=== PATIENT | male | born 1995 | race Caucasian/White ===

== ENCOUNTER → 2020-07-27 09:16 | Outpatient (CLI) | payer OTHER, SELFPAY ==
--- NOTE | ~2020-07-27 | CT_ITS ---
EXAMINATION: CT IAC/mastoids BI wo con DATE: 07/27/2020 09:36 INDICATION: Mixed conductive and sensorineural hearing loss. TECHNIQUE: Computed tomography (CT) of the temporal bones was performed without intravenous contrast. Automated exposure control and iterative reconstruction technique were employed. The dose-length pro duct was 260.23 mGy-cm. COMPARISON: None FINDINGS: RIGHT TEMPORAL BONE: Right internal auditory canal, cochlea, vestibule, semicircular canals, vestibular aqueduct, carotid canal, jugular bulb, and facial nerve course are normal. There is a small volume of material abutting the ossicles including in Prussak space. There are no erosions of bone. Scutum is normal. The tympan ic membrane is thickened superiorly. There are small areas of dehiscence of the tegmen tympani. There is a small volume of cerumen in the external auditory canal. There is a trace right mastoid effusion . LEFT TEMPORAL BONE: The internal auditory canal, cochlea, vestibule, semicircular canals, vestibular aqueduct, carotid ca nal, jugular bulb, facial nerve course are normal. Incus is absent. The head of malleus is small. The re is a small volume of material in the tympanic cavity including in Prussak space. There are erosion s of scutum. There are areas of dehiscence of tegmen tympani. There are changes of mastoidectomy. The re is a left mastoid effusion. There is narrowing of the soft tissue external auditory canal. IMPRESSION: 1. Small volume of material in the right tympanic cavity without bone erosion. 2. Small volume of material in the left tympanic cavity. Absent incus and erosions of scutum and head of malleus. 3. Changes of left mastoidectomy. Left mastoid effusion. 4. Narrowing of the soft tissue left external auditory canal. Correlate clinically for otitis externa . Reviewed, dictated and finalized at location A. IALTY PERSON IMPRESSION: 1. Small volume of material in the right tympanic cavity without bone erosion. 2. Small volume of material in the left tympanic cavity. Absent incus and erosi ons of scutum and head of malleus. 3. Changes of left mastoidectomy. Left mastoid effusion. 4. Narrowing of the soft tissue left external auditory canal. Correlate clinica lly for otitis externa.
== END ==
PROVIDERS: Visit Provider Otolaryngology
DX: H91.90 Unspecified hearing loss, unspecified ear (principal); H74.8X3 Other specified disorders of middle ear and mastoid, bilateral
CPT/HCPCS: 70480

== ENCOUNTER 2021-06-20 10:53 | Emergency (ER) | payer OTHER, SELFPAY ==
--- NOTE | ~2021-06-20 | XR_ITS ---
XR thoracic spine 3V 06/20/2021 13:15 Indication: Back pain Procedure: 3 views of the thoracic spine Comparison: No prior studies for comparison. Findings: No fracture or traumatic malalignment. Vertebral body heights and alignment are normal. No paraspinal soft tissue abnormality. Pedicles intact. No paraspinal soft tissue abnormality. Impression: 1: No acute abnormality of the thoracic spine. Reviewed, dictated and finalized at location A. OO DESIGNER Impression: 1: No acute abnormality of the thoracic spine.
[2021-06-20 11:18] VITALS: BP 169/95; PULSE 62; RESP 18; TEMP 36.6; O2SAT 100
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
== END 2021-06-20 14:20 | disposition home or self-care (01) ==
PROVIDERS: Emergency Provider Emergency Medicine
DX: S29.012A Strain of muscle and tendon of back wall of thorax, initial encounter (principal); V49.40XA Driver injured in collision with unspecified motor vehicles in traffic accident, initial encounter
CPT/HCPCS: 72072; 99283

== ENCOUNTER 2021-07-14 12:50 | Emergency (ER) | payer OTHER, SELFPAY ==
--- NOTE | ~2021-07-14 | XR_ITS ---
EXAMINATION: XR chest 1V portable DATE: 07/14/2021 14:36 INDICATION: Fever. TECHNIQUE: A single frontal view of the chest was obtained. COMPARISON: None. FINDINGS: The chest demonstrates clear lungs without pneumonia, pleural effusion, or pneumothorax. Th e heart size is normal. IMPRESSION: 1. No acute cardiopulmonary disease. Reviewed, dictated and finalized at location B. MACHINE OPERATOR HELPER
[2021-07-14 13:15] VITALS: BP 158/87; PULSE 123; RESP 17; TEMP 39.1; O2SAT 98
[2021-07-14] MEDS: ACETAMINOPHEN 325 MG TABLET 650 MG PO (14:27)
--- NOTE | 2021-07-14 14:27 | ED.URI ---
HPI - URI/Sore Throat General Chief Complaint: Fever Stated Complaint: fever Time Seen by Provider: 07/14/21 14:16 Source: patient Mode of arrival: ambulatory Limitations: no limitations History of Present Illness HPI Narrative: Patient is a 26-year-old male complaining of fever accompanied by cough, productive, clear sputum that started 2 days ago. Patient states that he was seen at an urgent care, [facility] [place], had flu and COVID test done and both were negative. Patient denies any chest pain, shortness of breath, abdominal pain, nausea, vomiting, diarrhea or or rash. Patient states that he is fully vaccinated from COVID. Related Data Home Medications Medication Instructions Recorded Confirmed No Home Medications 06/20/21 07/14/21 Allergies Allergy/AdvReac Type Severity Reaction Status Date / Time No Known Allergies Allergy Verified 07/14/21 12:50 Review of Systems Review of Systems: All systems reviewed & are unremarkable except as noted in HPI and below Constitutional: Constitutional: Denies body ache(s), Denies excessive sweating, Denies fatigue, Denies headache(s), Denies lethargy, Denies malaise, Denies weakness and Denies weight loss Eyes: Eyes: Denies blurry vision, Denies change in vision and Denies loss of vision ENT: Denies dizziness, Denies ear discharge, Denies headache(s), Denies lip swelling, Denies epistaxis, Denies nasal congestion, Denies neck pain, Denies throat swelling and Denies tongue swelling Cardiovascular: Cardiovascular: Denies chest pain, Denies chest pain at rest, Denies chest pain with activity, Denies diaphoresis, Denies rapid heart rate, Denies edema, Denies irregular heart rhythm, Denies lightheadedness, Denies palpitations, Denies dyspnea and Denies dyspnea on exertion Respiratory: Respiratory: Denies chest congestion, Denies hemoptysis, Denies dyspnea and Denies dyspnea on exertion Gastrointestinal: Gastrointestinal: Denies abdominal pain, Denies melena, Denies hematochezia, Denies diarrhea, Denies nausea, Denies vomiting and Denies hematemesis Musculoskeletal: Musculoskeletal: Denies abnormal gait, Denies deformity, Denies joint swelling, Denies limited range of motion, Denies neck pain and Denies numbness Neurologic: Denies Abnormal speech present, Denies abnormal gait, Denies confusion, Denies dizziness, Denies headache(s), Denies focal weakness, Denies loss of vision, Denies numbness, Denies Other visual disturbances, Denies Sensory deficit (Neuro) and Denies weakness Psychiatric: Psychiatric: Denies confusion, Denies depression, Denies auditory hallucinations, Denies homicidal ideation and Denies suicidal ideation Endocrine: Endocrine: Denies cold intolerance, Denies excessive sweating, Denies fatigue, Denies heat intolerance and Denies palpitations Hematologic/Lymphatic: Hematologic/Lymphatic: Denies easy bleeding and Denies easy bruising Allergic/Immunologic: Allergic/Immunologic: Denies lip swelling, Denies throat swelling and Denies tongue swelling PMFSH Comments Past medical history: None Family history: Unknown Social history: Non-smoker no EtOH or drug use Exam Const: General: cooperative, healthy appearing, comfortable, no acute distress, well developed, alert and awake; No confusion Orientation/consciousness: oriented to person, oriented to place, oriented to time, patient oriented x3 and No confusion Limitations: no limitations HENMT: Head: normal to inspection, normocephalic and atraumatic Ears: hearing grossly normal bilaterally, TM normal on the right and TM normal on the left General nose exam: Normal external nose present, Normal nares present and No nasal discharge present Face and sinus: normal facial exam Mouth: Yes Normal oral and palatal mucosa present, Yes lip normal, Yes tongue normal and Yes oropharynx normal Throat: posterior oropharynx normal, tonsils normal and uvula midline Eyes: General: appearance normal, both eyes and all related structures Pupils: E
[2021-07-14] MEDS: IBUPROFEN 600 MG TABLET PO (14:38)
== END 2021-07-14 15:49 | disposition home or self-care (01) ==
PROVIDERS: Emergency Provider Emergency Medicine
DX: J06.9 Acute upper respiratory infection, unspecified (principal)
CPT/HCPCS: 71045; 87081; 87804; 87880; 99283; A9270

== ENCOUNTER 2021-07-19 18:40 | Emergency (ER) | payer OTHER, SELFPAY ==
[2021-07-19 18:42] VITALS: TEMP 37.6
[2021-07-19 18:54] VITALS: BP 155/85; PULSE 107; RESP 16; TEMP 38; O2SAT 98
--- NOTE | 2021-07-19 18:58 | ED.URI ---
HPI - URI/Sore Throat General Chief Complaint: Upper Respiratory Infection Stated Complaint: Tight feeling in chest Time Seen by Provider: 07/19/21 18:59 Source: patient, RN notes reviewed and old records reviewed Mode of arrival: ambulatory Limitations: no limitations History of Present Illness HPI Narrative: 26-year-old male presents to the [facility] with complaints of sternal discomfort when inhaling only. No chest pain. Denies shortness of breath. Patient states he has not been to work since last Sunday when he started with cold symptoms. On he tested at [facility] for a COVID test which he reports is negative. Was then seen the next day for shortness of breath, tested for COVID, influenza and was told it was negative. States he also had a chest x-ray. At that time he reports fevers. Was not prescribed anything. Patient states his current symptoms started yesterday. Denies fevers. No chest pain. Reports intermittent shortness of breath with inhalation only. MD elicited complaint: cough Related Data Allergies Allergy/AdvReac Type Severity Reaction Status Date / Time No Known Allergies Allergy Verified 07/19/21 18:57 Review of Systems Review of Systems: All systems reviewed & are unremarkable except as noted in HPI and below Constitutional: Constitutional: Reports no additional constitutional complaints, Denies chills and Denies fever(s) Eyes: Eyes: Reports no additional eye complaints ENT: Reports system reviewed and no additional complaints, except as documented Cardiovascular: Cardiovascular: Reports no additional cardiovascular complaints, Denies chest pain, Denies rapid heart rate, Denies radiating jaw, neck or arm pain and Denies slow heart rate Respiratory: Respiratory: Reports as per HPI, Reports chest congestion, Reports cough and Reports dyspnea Gastrointestinal: Gastrointestinal: Reports no additional gastrointestinal complaints, Denies abdominal pain, Denies diarrhea, Denies nausea and Denies vomiting Musculoskeletal: Musculoskeletal: Reports no additional musculoskeletal complaints Integumentary/Breasts: Skin/Breast: Reports system reviewed and no additional complaints, except as docu Neurologic: Reports system reviewed and no additional complaints, except as documented Psychiatric: Psychiatric: Reports no additional psychiatric complaints Allergic/Immunologic: Allergic/Immunologic: Reports no additional allergic/immunologic complaints PMFSH Surgical History Surgical History History of appendectomy History of external ear surgery Metal implants Comments At the time of my signature, I reviewed and agree with the nursing past medical, surgical, social, and family history. There is no relevant family history pertinent to the patient complaint. Exam Const: General: no acute distress, alert and ill appearing acutely (Mild) Nutritional Appearance: well nourished and obese Orientation/consciousness: patient oriented x3 Limitations: no limitations HENMT: Head: normal to inspection Ears: external ears normal, TM's normal bilaterally and EAC's normal General nose exam: Normal nasal mucous membranes and turbinates present Face and sinus: normal facial exam Mouth: Yes Normal oral and palatal mucosa present Throat: posterior oropharynx normal Eyes: Conjunctivae: conjunctivae normal Pupils: Equal, round and reactive pupils present Neck: Neck: normal visual inspection, no lymphadenopathy and no meningeal signs Chest: Chest palpation & inspection: normal inspection of the chest Resp: Effort & Inspection: normal respiratory effort and no use of accessory muscles Auscultation: clear to auscultation bilaterally, no crackles, no rales, no rhonchi and no wheezes Cardio: Rate: regular rate Rhythm: regular rhythm GI: GI Palp: Yes Soft to palpation and No Tenderness to palpation present (GI) Back/Spine/Pelvis: Back: no CVA tenderness Skin: Gener
== END 2021-07-19 19:12 | disposition home or self-care (01) ==
PROVIDERS: Emergency Provider Nurse Practitioner
DX: J40 Bronchitis, not specified as acute or chronic (principal)
CPT/HCPCS: 99213; G0463

== ENCOUNTER 2023-12-01 10:18 | Emergency (ER) | payer MEDICAID, SELFPAY ==
--- NOTE | ~2023-12-01 | XR_ITS ---
XR foot LT min 3V DATE: 12/01/2023 10:45 INDICATION: Posterior left heel pain for a few days TECHNIQUE: 4 views of the left foot COMPARISON: None FINDINGS: Mild posterior calcaneal enthesopathy. Very slight plantar calcaneal enthesopathy. No fracture, dislocation, periosteal reaction or bone destruction. Joint spaces are preserved. No ero sive change. IMPRESSION: Mild posterior and very slight plantar calcaneal enthesopathy Reviewed, dictated and finalized at location A.
[2023-12-01 10:32] VITALS: BP 147/93; PULSE 60; RESP 16; TEMP 36.8; O2SAT 98
--- NOTE | 2023-12-01 10:57 | ED.GENADULT ---
HPI - General Adult General Chief complaint: Extremity Injury, Lower Stated complaint: left foot pain Source: patient Mode of arrival: ambulatory Limitations: no limitations History of Present Illness HPI narrative: Patient presents for evaluation of left ankle pain for the last week. He denies any known precipitating cause or injury. He simply woke up from sleep with his pain. He states the pain is progressively worsening. The majority of pain is in the medial aspect of the left ankle, more notable with weight-bearing and walking. He rates his pain is 4/10 severity, described as sharp. He has loss of range of motion. He is not taking any medications to assist with the symptoms. Around the time of symptom onset he wore a left ankle splint. Related Data Home Medications Medication Instructions Recorded Confirmed sertraline 20 mg/mL oral 20 mg PO DAILY 12/01/23 12/01/23 concentrate (Zoloft) Allergies Allergy/AdvReac Type Severity Reaction Status Date / Time No Known Allergies Allergy Verified 07/19/21 18:57 Review of Systems Review of Systems: CONSTITUTIONAL: Denies fever, chills, or sweats. EYES: Denies visual changes, redness, or discharge. ENT: Denies rhinorrhea, congestion, sore throat, or otalgia. CARDIOVASCULAR: Denies chest pain, palpitations, or edema. RESPIRATORY: Denies cough or dyspnea. GASTROINTESTINAL: Denies abdominal pain, nausea, vomiting, or diarrhea. GENITOURINARY: Denies dysuria or hematuria. SKIN: Denies rash or itching. MUSCULOSKELETAL: Reports pain in left ankle with radiation into the foot. NEUROLOGIC: Denies headache, numbness, dizziness, or weakness. PSYCHIATRIC: Denies anxiety or depression. [facility] Past Medical History Medical History No pertinent past medical history Surgical History Surgical History History of appendectomy History of external ear surgery Metal implants Family History Family History Mother Family history non-contributory Social History Social History (Updated 12/01/23 @ 10:59 by SID Holland, PANFILO) Smoking status: Current every day smoker Tobacco type: e-cigarettes/vaping Living arrangements: with family Gender identity (if verbalized by the patient): Male Sexual Orientation (if Verbalized by the Patient): Straight or Heterosexual Spiritual care concerns: No Exam Narrative: GENERAL: Well-appearing, well-nourished, and in no acute distress. HEAD: Normocephalic, atraumatic. EYES: PERRLA and EOMI. ENT: Nares clear, no rhinorrhea or epistaxis. Mucous membranes moist. Oropharynx without tonsillar hypertrophy exudate or other lesions. Bilateral TMs pearly miller nonbulging NECK: Supple. No adenopathy or masses. No carotid bruits or JVD CHEST: Clear to auscultation. No respiratory distress. No wheezes rales or rhonchi HEART: Regular rate and rhythm. No murmur heard. Normal peripheral pulses. ABDOMEN: Soft, nontender, nondistended, normal active bowel sounds. EXTREMITIES: there is tenderness over the left lateral ankle without medial tenderness. He is able to dorsi and plantar flex the left foot but does so with hesitancy secondary to pain. SKIN: Warm, dry, no rash. NEURO: No focal deficits. Alert and oriented x3. PSYCH: Normal mood and affect. Course Course Emergency Course: this is a 28-year-old male who presented for evaluation of left ankle pain. X-ray consistent with enthesopathy. Advised on RICE therapy. I offered to provide him with a prescription for 800 mg ibuprofen. He declined. He will purchase [id number]. Follow-up with primary provider. Go to the ER for worsening symptoms. Patient in agreement with plan of care. Level of Care: Express Care Visit Vital Signs Vital signs: Vital Signs Temperature 36.8 C
== END 2023-12-01 11:34 | disposition home or self-care (01) ==
PROVIDERS: Emergency Provider Nurse Practitioner; PCP Student in an Organized Health Care Education/Training Program
DX: M77.9 Enthesopathy, unspecified (principal); F17.290 Nicotine dependence, other tobacco product, uncomplicated
CPT/HCPCS: 73630; 99213; G0463